=== PATIENT | male | born 1990 | race Caucasian/White ===

== ENCOUNTER → 2018-04-11 | Outpatient (CLI) | payer OTHER | END | disposition home or self-care (01) | LOC: US 10:55 | DX: N62 Hypertrophy of breast (principal); N43.3 Hydrocele, unspecified ==

== ENCOUNTER 2022-09-13 10:49 | Emergency (ER) | payer OTHER ==
[~2022-09-13] VITALS: Ht 182.8 cm; Wt 104.3 kg
[2022-09-13 11:54] LABS: BASO # 0.1 10*3/uL (0.0-0.1); BASO % 1.1 % (0.0-1.0); EOS # 0.8 10*3/uL (0.0-0.4); EOS % 8.9 % (1.0-4.0); HEMATOCRIT 44.6 % (42.0-52.0); LYMPH % 23.1 % (27.0-41.0); MEAN CELL VOLUME 88.7 fl (80.0-94.0); MEAN CORPUSCULAR HGB 31.4 pg (27.0-31.0); MEAN CORPUSCULAR HGB CONC 35.4 g/dl (33.0-37.0); MONO # 0.6 10*3/uL (0.1-1.0); MONO % 6.9 % (3.0-9.0); NEUT # 5.1 10*3/uL (2.3-7.9); NEUT % 59.8 % (47.0-73.0); PLATELET COUNT AUTOMATED 340 10*3/uL (130-400); RED BLOOD COUNT 5.03 10*6/uL (4.50-5.90); RED CELL DISTRI WIDTH 11.9 % (0-14.5); WHITE BLOOD COUNT 8.6 10*3/uL (4.8-10.8)
[2022-09-13 12:05] LABS: ACT PARTIAL THROMBO TIME 25.6 SECONDS (20.0-32.1)
[2022-09-13 12:10] LABS: ALKALINE PHOSPHATASE 68 U/L (46-116); BUN 10 mg/dl (9-23); CHLORIDE 109 mmol/L (98-107); LIPASE 38 U/L (12-53); POTASSIUM 4.2 mmol/L (3.4-5.1); SGPT/ALT 33 U/L (10-49)
== END 2022-09-13 12:58 | disposition home or self-care (01) ==
LOC: ED 10:49
PROVIDERS: Physician Assistant
DX: S20.212A Contusion of left front wall of thorax, initial encounter (principal); X58.XXXA Exposure to other specified factors, initial encounter; Y93.89 Activity, other specified; Y92.89 Other specified places as the place of occurrence of the external cause; Y99.8 Other external cause status

== ENCOUNTER 2022-11-01 12:22 | Emergency (ER) | payer OTHER ==
[~2022-11-01] VITALS: Ht 185.4 cm; Wt 106.6 kg
[2022-11-01 13:14] LABS: BASO # 0.1 10*3/uL (0.0-0.1); BASO % 1.7 % (0.0-1.0); EOS # 1.3 10*3/uL (0.0-0.4); EOS % 17.3 % (1.0-4.0); HEMATOCRIT 44.3 % (42.0-52.0); LYMPH % 26.9 % (27.0-41.0); MEAN CELL VOLUME 90.4 fl (80.0-94.0); MEAN CORPUSCULAR HGB 31.2 pg (27.0-31.0); MEAN CORPUSCULAR HGB CONC 34.5 g/dl (33.0-37.0); MEAN PLATELET VOLUME 10.1 fl (9.6-12.3); MONO # 0.6 10*3/uL (0.1-1.0); MONO % 7.5 % (3.0-9.0); NEUT # 3.5 10*3/uL (2.3-7.9); NEUT % 46.5 % (47.0-73.0); PLATELET COUNT AUTOMATED 270 10*3/uL (130-400); RED CELL DISTRI WIDTH 11.9 % (0-14.5); WHITE BLOOD COUNT 7.6 10*3/uL (4.8-10.8)
[2022-11-01 13:27] LABS: BILIRUBIN Negative (Negative); BLOOD Negative (Negative); CLARITY Clear (Clear); COLOR Yellow (Yellow); GLUCOSE Negative (Negative); KETONE Negative (Negative); LEUKO ESTERASE Negative (Negative); NITRITE Negative (Negative); PH 5.5 (4.5-8.0); SPECIFIC GRAVITY 1.025 (1.001-1.030); UROBILINOGEN 0.2 E.U./dl (0.0-1.0)
[2022-11-01 13:35] LABS: ALKALINE PHOSPHATASE 83 U/L (46-116); BUN 10 mg/dl (9-23); CHLORIDE 107 mmol/L (98-107); POTASSIUM 4.1 mmol/L (3.4-5.1); SGPT/ALT 24 U/L (10-49)
[2022-11-01 14:05] LABS: BACTERIA 1+; MUCOUS 1+
== END 2022-11-01 14:29 | disposition home or self-care (01) ==
LOC: ED 12:22
PROVIDERS: Nurse Practitioner Family
DX: M54.50 Low back pain, unspecified (principal); R30.0 Dysuria; R11.0 Nausea

== ENCOUNTER 2023-08-28 14:20 | Emergency (ER) | payer OTHER ==
[~2023-08-28] VITALS: Ht 185.4 cm; Wt 108.9 kg
[2023-08-28] MEDS ORDERED: SODIUM CHLORIDE 0.9% 1,000 ML IV ONE (14:30)
[2023-08-28] MEDS ORDERED: Ketorolac Tromethamine 15 MG/ML VIAL IV ONE (14:30)
[2023-08-28] MEDS ORDERED: DIAZEPAM 5 MG TAB PO ONE (14:30)
[2023-08-28 14:41] LABS: BASO # 0.1 10*3/uL (0.0-0.1); BASO % 1.1 % (0.0-1.0); EOS # 0.4 10*3/uL (0.0-0.4); EOS % 5.2 % (1.0-4.0); HEMATOCRIT 44.8 % (42.0-52.0); LYMPH # 1.9 10*3/uL (1.3-4.4); LYMPH % 25.6 % (27.0-41.0); MEAN CELL VOLUME 88.9 fl (80.0-94.0); MEAN CORPUSCULAR HGB CONC 34.8 g/dl (33.0-37.0); MEAN PLATELET VOLUME 9.6 fl (9.6-12.3); MONO # 0.6 10*3/uL (0.1-1.0); MONO % 8.5 % (3.0-9.0); NEUT # 4.5 10*3/uL (2.3-7.9); NEUT % 59.5 % (47.0-73.0); PLATELET COUNT AUTOMATED 288 10*3/uL (130-400); RED BLOOD COUNT 5.04 10*6/uL (4.50-5.90); RED CELL DISTRI WIDTH 11.8 % (0-14.5); WHITE BLOOD COUNT 7.5 10*3/uL (4.8-10.8)
[2023-08-28 15:03] LABS: ALKALINE PHOSPHATASE 75 U/L (46-116); BUN 11 mg/dl (9-23); CHLORIDE 110 mmol/L (98-107); SGPT/ALT 32 U/L (5-49); TOTAL PROTEIN 7.1 gm/dL (6.0-8.0)
== END 2023-08-28 15:30 | disposition home or self-care (01) ==
LOC: ED 14:20
PROVIDERS: Emergency Medicine
DX: R07.89 Other chest pain (principal); R06.02 Shortness of breath; M79.602 Pain in left arm; F41.9 Anxiety disorder, unspecified

== ENCOUNTER 2023-12-25 05:06 | Emergency (ER) | payer OTHER ==
[~2023-12-25] VITALS: Ht 185.4 cm; Wt 108.9 kg
[2023-12-25] MEDS ORDERED: methylPREDNISolone sod succ 125 MG VIAL IV ONE (05:35)
[2023-12-25] MEDS ORDERED: Albuterol Sulf/Ipratropium 3 ML VIAL NEB ONE (05:35)
[2023-12-25] MEDS ORDERED: MAGNESIUM SULFATE 50 ML IV ONE (05:35)
[2023-12-25 06:02] LABS: MEAN CELL VOLUME 91.8 fl (80.0-94.0); MEAN CORPUSCULAR HGB 31.4 pg (27.0-31.0); MEAN CORPUSCULAR HGB CONC 34.2 g/dl (33.0-37.0); MEAN PLATELET VOLUME 10.6 fl (9.6-12.3); PLATELET COUNT AUTOMATED 247 10*3/uL (130-400); RED CELL DISTRI WIDTH 12.1 % (0-14.5)
[2023-12-25 06:04] LABS: MANUAL DIFF REFLEX YES
[2023-12-25 06:24] LABS: ALKALINE PHOSPHATASE 83 U/L (46-116); BUN 12 mg/dl (9-23); CHLORIDE 109 mmol/L (98-107); POTASSIUM 4.2 mmol/L (3.4-5.1); SGPT/ALT 21 U/L (5-49); TOTAL PROTEIN 6.8 gm/dL (6.0-8.0)
[2023-12-25 06:27] LABS: BASOPHILS 2 % (0-1); BURR CELLS FEW; PLATELET SUFFICIENCY NORMAL (NORMAL); POLYCHROMASIA SLIGHT; TOTAL CELLS COUNTED 100 #CELLS
[2023-12-25] MEDS ORDERED: VENT7GM INH (06:46)
[2023-12-25] MEDS ORDERED: PREDNISONE20 M1 PO (06:46)
== END 2023-12-25 07:03 | disposition home or self-care (01) ==
LOC: ED 05:06
PROVIDERS: Internal Medicine
DX: J45.901 Unspecified asthma with (acute) exacerbation (principal)

== ENCOUNTER 2024-06-11 15:45 | Emergency (ER) | payer OTHER ==
[~2024-06-11] VITALS: Ht 187.9 cm; Wt 104.3 kg
[~2024-06-11 15:45] MED LIST: PREDNISONE20 M1 PO; VENT7GM INH
[2024-06-11 18:59] LABS: HEMATOCRIT 46.5 % (42.0-52.0); MEAN CELL VOLUME 90.1 fl (80.0-94.0); MEAN CORPUSCULAR HGB 30.6 pg (27.0-31.0); MEAN PLATELET VOLUME 9.7 fl (9.6-12.3); PLATELET COUNT AUTOMATED 287 10*3/uL (130-400); RED BLOOD COUNT 5.16 10*6/uL (4.50-5.90); RED CELL DISTRI WIDTH 11.8 % (0-14.5); WHITE BLOOD COUNT 8.2 10*3/uL (4.8-10.8)
[2024-06-11 19:02] LABS: MANUAL DIFF REFLEX YES
[2024-06-11] MEDS ORDERED: IOHEXOL 300 MG/ML 100 ML VIAL IV ONE (19:05)
[2024-06-11 19:20] LABS: ALKALINE PHOSPHATASE 87 U/L (46-116); BUN 15 mg/dl (9-23); CHLORIDE 108 mmol/L (98-107); LIPASE 32 U/L (12-53); SGPT/ALT 17 U/L (5-49); TOTAL PROTEIN 7.5 gm/dL (6.0-8.0)
[2024-06-11 19:23] LABS: BASOPHILS 1 % (0-1); PLATELET SUFFICIENCY NORMAL (NORMAL); TOTAL CELLS COUNTED 100 #CELLS
[2024-06-11] MEDS ORDERED: IOHEXOL 300 MG/ML 100 ML VIAL ONE (19:50)
== END 2024-06-11 19:52 | disposition left against medical advice (07) ==
LOC: ED 15:45
PROVIDERS: Physician Assistant Medical
DX: R10.13 Epigastric pain (principal); Z53.29 Procedure and treatment not carried out because of patient's decision for other reasons; R10.84 Generalized abdominal pain; R11.0 Nausea

== ENCOUNTER 2024-07-22 18:29 | Emergency (ER) | payer OTHER ==
[~2024-07-22] VITALS: Ht 185.4 cm; Wt 106.6 kg
[2024-07-22] MEDS ORDERED: VITAMIN D325 MC1 PO (18:57)
[2024-07-22] MEDS ORDERED: DICLOFENAC35 MG PO (18:57)
[2024-07-22] MEDS ORDERED: LORADAMED10 MG PO (18:58)
[2024-07-22] MEDS ORDERED: 24 HOUR ALLERG9.9 ML NAS (18:59)
[2024-07-22] MEDS ORDERED: VENT7GM INH (18:59)
[2024-07-22] MEDS ORDERED: METHOCARBAMOL750 M1 PO (19:00)
[2024-07-22] MEDS ORDERED: BENZONATATE100 M1 PO (19:00)
[2024-07-22] MEDS ORDERED: PROPRANOLOL HCL10 MG PO (19:01)
[2024-07-22] MEDS ORDERED: OMEPRAZOLE MAGN20 MG PO (19:01)
[2024-07-22] MEDS ORDERED: KONSYL6 GM PO (19:02)
[2024-07-22] MEDS ORDERED: DIVALPROEX SOD500 M1 PO (19:02)
[2024-07-22] MEDS ORDERED: SERTRALINE HYD100 MG PO (19:03)
[2024-07-22] MEDS ORDERED: PERPHENAZINE2 MG PO (19:03)
[2024-07-22] MEDS ORDERED: PRAZOSIN HCL5 MG PO (19:03)
[2024-07-22] MEDS ORDERED: ZANAFLEX4 M1 PO (19:04)
[2024-07-22] MEDS ORDERED: SODIUM CHLORIDE 0.9% 1,000 ML IV ONE (19:20)
[2024-07-22] MEDS ORDERED: Ondansetron Hydrochloride 4 MG/2 ML VIAL IV ONE (19:25)
[2024-07-22] MEDS ORDERED: Ketorolac Tromethamine 30 MG/ML VIAL IV ONE (19:25)
[2024-07-22 19:41] LABS: BASO # 0.1 10*3/uL (0.0-0.1); BASO % 1.4 % (0.0-1.0); EOS # 1.9 10*3/uL (0.0-0.4); EOS % 18.7 % (1.0-4.0); HEMATOCRIT 43.1 % (42.0-52.0); MEAN CELL VOLUME 91.5 fl (80.0-94.0); MEAN CORPUSCULAR HGB 30.6 pg (27.0-31.0); MEAN CORPUSCULAR HGB CONC 33.4 g/dl (33.0-37.0); MEAN PLATELET VOLUME 9.6 fl (9.6-12.3); MONO # 1.1 10*3/uL (0.1-1.0); MONO % 10.6 % (3.0-9.0); NEUT # 6.4 10*3/uL (2.3-7.9); PLATELET COUNT AUTOMATED 268 10*3/uL (130-400); RED BLOOD COUNT 4.71 10*6/uL (4.50-5.90); RED CELL DISTRI WIDTH 12.1 % (0-14.5); WHITE BLOOD COUNT 10.1 10*3/uL (4.8-10.8)
[2024-07-22 20:02] LABS: ALKALINE PHOSPHATASE 82 U/L (46-116); BUN 11 mg/dl (9-23); CHLORIDE 108 mmol/L (98-107); POTASSIUM 3.5 mmol/L (3.4-5.1); SGPT/ALT 18 U/L (5-49); TOTAL PROTEIN 7.3 gm/dL (6.0-8.0)
[2024-07-22] MEDS ORDERED: HYDROmorphONE Hydrochloride 0.5 MG/0.5 ML SYRINGE IV ONE (20:05)
[2024-07-22 20:09] LABS: BILIRUBIN 1+ (Negative); BLOOD Negative (Negative); CLARITY Clear (Clear); COLOR Orange (Yellow); GLUCOSE Negative (Negative); KETONE Negative (Negative); LEUKO ESTERASE 2+ (Negative); NITRITE Positive (Negative); PH 7.5 (4.5-8.0); SPECIFIC GRAVITY 1.025 (1.001-1.030)
[2024-07-22 20:18] LABS: BACTERIA 1+; MUCOUS 1+
[2024-07-22] MEDS ORDERED: Ceftriaxone Sodium 1 GM/10 ML SYR IV ONE (20:30)
[2024-07-22] MEDS ORDERED: MACROBID100 M1 PO (22:01)
== END 2024-07-22 22:17 | disposition home or self-care (01) ==
LOC: ED 18:29
PROVIDERS: Nurse Practitioner
DX: N39.0 Urinary tract infection, site not specified (principal); R11.2 Nausea with vomiting, unspecified; Z87.442 Personal history of urinary calculi

== ENCOUNTER 2024-07-25 04:41 | Emergency (ER) | payer OTHER ==
[~2024-07-25] VITALS: Ht 185.4 cm; Wt 106.6 kg
[~2024-07-25 04:41] MED LIST changes: +24 HOUR ALLERG9.9 ML NAS; +BENZONATATE100 M1 PO; +DICLOFENAC35 MG PO; +DIVALPROEX SOD500 M1 PO; +KONSYL6 GM PO; +LORADAMED10 MG PO; +MACROBID100 M1 PO; +METHOCARBAMOL750 M1 PO; +OMEPRAZOLE MAGN20 MG PO; +PERPHENAZINE2 MG PO; +PRAZOSIN HCL5 MG PO; +PROPRANOLOL HCL10 MG PO; +SERTRALINE HYD100 MG PO; +VITAMIN D325 MC1 PO; +ZANAFLEX4 M1 PO
[2024-07-25] MEDS ORDERED: Ondansetron Hydrochloride 4 MG/2 ML VIAL IV ONE (05:40)
[2024-07-25] MEDS ORDERED: Ketorolac Tromethamine 30 MG/ML VIAL IV ONE (05:40)
[2024-07-25] MEDS ORDERED: IOHEXOL 300 MG/ML 100 ML VIAL IV ONE (05:55)
[2024-07-25 06:02] LABS: BASO # 0.1 10*3/uL (0.0-0.1); BASO % 0.6 % (0.0-1.0); EOS % 0.4 % (1.0-4.0); HEMATOCRIT 49.5 % (42.0-52.0); MEAN CELL VOLUME 91.7 fl (80.0-94.0); MEAN CORPUSCULAR HGB 30.9 pg (27.0-31.0); MEAN CORPUSCULAR HGB CONC 33.7 g/dl (33.0-37.0); MEAN PLATELET VOLUME 10.1 fl (9.6-12.3); MONO % 9.4 % (3.0-9.0); NEUT # 8.6 10*3/uL (2.3-7.9); NEUT % 81.3 % (47.0-73.0); PLATELET COUNT AUTOMATED 212 10*3/uL (130-400); WHITE BLOOD COUNT 10.5 10*3/uL (4.8-10.8)
[2024-07-25 06:08] LABS: ALKALINE PHOSPHATASE 81 U/L (46-116); BUN 11 mg/dl (9-23); CHLORIDE 104 mmol/L (98-107); LIPASE 30 U/L (12-53); POTASSIUM 3.1 mmol/L (3.4-5.1); SGPT/ALT 17 U/L (5-49)
[2024-07-25] MEDS ORDERED: SODIUM CHLORIDE 0.9% 1,000 ML IV ONE (06:40)
[2024-07-25 08:12] LABS: BILIRUBIN Negative (Negative); BLOOD Negative (Negative); CLARITY Clear (Clear); COLOR Dark Yellow (Yellow); GLUCOSE Negative (Negative); KETONE 3+ (Negative); LEUKO ESTERASE Negative (Negative); NITRITE Negative (Negative); PH 5.5 (4.5-8.0); SPECIFIC GRAVITY >= 1.030 (1.001-1.030)
[2024-07-25 08:31] LABS: BACTERIA 1+; MUCOUS 3+
[2024-07-25] MEDS ORDERED: POTASSIUM CHLORIDE 20 MEQ TAB PO ONE (08:55)
== END 2024-07-25 09:48 | disposition home or self-care (01) ==
LOC: ED 04:41
PROVIDERS: Emergency Medicine
DX: K52.9 Noninfective gastroenteritis and colitis, unspecified (principal); Z20.822 Contact with and (suspected) exposure to COVID-19; R19.7 Diarrhea, unspecified; M54.50 Low back pain, unspecified; R11.0 Nausea; E87.6 Hypokalemia; R50.9 Fever, unspecified; J45.909 Unspecified asthma, uncomplicated; K21.9 Gastro-esophageal reflux disease without esophagitis; M79.10 Myalgia, unspecified site